=== PATIENT | female | born 1995 | race African-American/Black ===

== ENCOUNTER 2020-01-03 22:05 | Emergency (ER) | payer OTHER ==
[2020-01-04 12:49] LABS: SARS-CoV-2 MS2 Positive; SARS-CoV-2 N Gene Negative; SARS-CoV-2 S Gene Negative; SARS-CoV-2 orf1ab Negative
== END 2020-01-03 22:35 | disposition home or self-care (01) ==
LOC: ERS 22:05
DX: R50.9 Fever, unspecified (principal); Z20.828 Contact with and (suspected) exposure to other viral communicable diseases; J45.909 Unspecified asthma, uncomplicated; Z86.73 Personal history of transient ischemic attack (TIA), and cerebral infarction without residual deficits
CPT/HCPCS: 87635; 99283; U0003